=== PATIENT | male | born 1945 | race Caucasian/White ===

== ENCOUNTER → 2017-07-26 | Outpatient (CLI) | payer OTHER ==
[~2017-07-26] MED LIST: BETAFOOD PO; CALCIFOOD PO; CARDIO PLUS PO; CYRUTA PLUS PO; DIAPLEX PO; LEVO150T9 PO; SUPER BEETS PO; [UNRECOGNIZED DRUG - OTHER] PO; [UNRECOGNIZED DRUG - OTHER] PO; [UNRECOGNIZED DRUG - REMARK] PO
--- NOTE | 2017-07-26 12:51 | DIAGNOSTIC IMAGING REPORT ---
L VENOUS DOPP LOWER EXT UNILAT HISTORY: 71 years-old Male L LEG HX DVT chronic left leg pain and swelling COMPARISON: None available TECHNIQUE: Multiple real-time sonogram images of the left lower extremity deep venous structures were obtained assessing grayscale appearance, color and spectral flow FINDINGS: Common femoral vein demonstrates normal compressibility, flow and phasicity. There is partial compressibility with fibrin stranding noted within the superficial femoral, popliteal, posterior tibial, peroneal and anterior tibial veins with areas of diminished flow within the posterior tibial, peroneal and anterior tibial veins. No occlusive thrombus identified. IMPRESSION: 1. Suggested chronic thrombus with fibrin stranding extends from the superficial femoral vein through the lower leg deep veins with areas of diminished flow within the calf as above. 2. No evidence of acute occlusive deep venous thrombosis. The above report was generated using voice recognition software. It may contain grammatical, syntax or spelling errors. Electronically signed by: Sergio Goldsmith M.D. 07/26/2017 12:49 PM Dictated Date/Time: 07/26/2017 12:47 PM
== END | disposition home or self-care (01) ==
LOC: C.ULTR 12:11
PROVIDERS: ATTEND Orthopaedic Surgery Sports Medicine
DX: Z01.818 Encounter for other preprocedural examination (principal); Z86.718 Personal history of other venous thrombosis and embolism